=== PATIENT | female | born 1990 | race Caucasian/White ===

== ENCOUNTER → 2018-06-29 | Emergency (ER) | payer OTHER ==
[~2018-06-29] VITALS: Ht 165.1 cm; Wt 62.1 kg
[~2018-06-29] MED LIST: FIORICET 50-321 EACH PO
== END | disposition left against medical advice (07) ==
LOC: ER 21:30
DX: Z53.20 Procedure and treatment not carried out because of patient's decision for unspecified reasons (principal)

== ENCOUNTER 2019-01-20 21:32 | Emergency (ER) | payer OTHER ==
[~2019-01-20] VITALS: Ht 165.1 cm; Wt 57.6 kg
== END 2019-01-21 00:10 | disposition home or self-care (01) ==
LOC: ER 21:32
DX: K52.9 Noninfective gastroenteritis and colitis, unspecified (principal); G44.209 Tension-type headache, unspecified, not intractable

== ENCOUNTER 2021-12-18 06:39 | Emergency (ER) | payer OTHER ==
[~2021-12-18] VITALS: Ht 165.1 cm; Wt 63.5 kg
[2021-12-18] MEDS ORDERED: BACTRIM 400-801 EACH PO ×2 (09:49→09:57)
== END 2021-12-18 10:17 | disposition home or self-care (01) ==
LOC: ER 06:39
DX: N39.0 Urinary tract infection, site not specified (principal); N30.00 Acute cystitis without hematuria; Z88.8 Allergy status to other drugs, medicaments and biological substances